=== PATIENT | female | born 1960 | race Caucasian/White ===

== ENCOUNTER 2018-12-06 22:51 | Emergency (ER) | payer OTHER ==
[2018-12-06] MEDS ORDERED: Ibuprofen 800 MG TAB ONE (23:40)
[2018-12-06 23:51] LABS: Bilirubin Negative (Negative); Blood, Urine 3+ (Negative); Clarity Clear (Clear); Glucose, Urine (Dipstick) Normal (Negative); Leukocyte 250 Leu/uL (Negative); Nitrite Negative (Negative); Protein, Urine (Dipstick) Negative (Neg-Trace); RBC/HPF 21-50 HPF (0-3); Squamous Epithelial None Seen HPF (0-3); Urobilinogen Normal mg/dL (Less than 2); WBC/HPF 21-50 HPF (0-3)
[2018-12-06 23:58] LABS: Bacteria/HPF None Seen HPF (None Seen)
[2018-12-07] MEDS ORDERED: HYDROcodone/Acetaminophen 5/325 mg Tablet ONE (00:15)
[2018-12-07] MEDS ORDERED: cefTRIAXone\\ROCEPHIN 1 GM VIAL ONE (00:16)
[2018-12-07] MEDS ORDERED: Lidocaine 1% PF 5 ML VIAL ONE (00:16)
== END 2018-12-07 00:45 | disposition home or self-care (01) ==
LOC: ERS 22:51
DX: N30.01 Acute cystitis with hematuria (principal)
CPT/HCPCS: 81003; 81015; 96372; 99283; J0696; J2001